=== PATIENT | female | born 1965 | race Hispanic/Latino ===

== ENCOUNTER 2023-10-31 08:01 | Day surgery (SDC) | payer OTHER ==
[~2023-10-31] VITALS: Ht 160 cm; Wt 52.2 kg
[2023-10-31] VITALS (22 sets, daily range): BP systolic 115–153; BP diastolic 64–84; PULSE 56–72; RESP 8–20; TEMP 96.5–97.9
[~2023-10-31 08:01] MED LIST: ESOM40CA66 PO; FAMO-290 PO; FENT1PAT61 TD; HYDR-4064 PO; LOSA1TAB37 PO; MELO-108 PO; MONT-39 PO; RIME75TA PO; TIZA-211 PO; TRAZ-185 PO
[2023-10-31] MEDS: 0.9%NACL 1000ML 1,000 ML IV ONE (08:41)
[2023-10-31] MEDS ORDERED: proPOFol 10 MG/ML 20ML VIAL IV ONE (09:25)
[2023-10-31] MEDS: acetaMINOPHEN 1,000 MG/100 ML VIAL IV ONE (11:00)
[2023-10-31] MEDS: ketOROlac 30MG VIAL (30MG/ML) ONE (11:00)
[2023-10-31] MEDS ORDERED: SIMETHICONE 40 MG/0.6 ML ML ONE (11:04)
== END 2023-10-31 12:48 | disposition home or self-care (01) ==
LOC: ENDO 08:01 → DAH 08:01 → ENDO 12:48
PROVIDERS: ATTEND Internal Medicine Gastroenterology
DX: K59.04 Chronic idiopathic constipation (principal); D12.3 Benign neoplasm of transverse colon; K29.50 Unspecified chronic gastritis without bleeding; K31.7 Polyp of stomach and duodenum; R13.10 Dysphagia, unspecified; K21.9 Gastro-esophageal reflux disease without esophagitis; K22.89 Other specified disease of esophagus; K44.9 Diaphragmatic hernia without obstruction or gangrene; I10 Essential (primary) hypertension; E78.5 Hyperlipidemia, unspecified; Z98.1 Arthrodesis status; Z90.49 Acquired absence of other specified parts of digestive tract; Z98.51 Tubal ligation status; Z86.010 Personal history of colon polyps; Z79.899 Other long term (current) drug therapy
CPT/HCPCS: 43251; 74018; 71045; 43239; 43248; 45380; J7030 ×2; J2704; J1885; A4620; A4215; A4223; A7002; A4222; A4221; A4663; A4606; J3490